=== PATIENT | female | born 1975 | race African-American/Black ===

== ENCOUNTER 2017-07-22 03:35 | Inpatient (IN) ==
[2017-07-22 04:46] LABS: Hematocrit 30.5 VOL% (35.7-47.0); Lymphocytes # 0.3 10*3/uL (1.4-4.0); Lymphocytes % 22.1 % (21.3-54.2); Mean Corpuscular HGB Conc 32.8 GM/DL (32-36); Mean Corpuscular Hemoglobin 23 PG (27-34); Mean Corpuscular Volume 71.1 FL (87-102); Monocytes # 0.1 10*3/uL (0.11-0.8); Monocytes % 5.3 % (1.7-12.7); Neutrophils # 0.8 10*3/uL (1.4-7.4); Neutrophils % 72.6 % (38.7-73.9); Red Blood Count 4.29 MC/CUMM (3.8-5.5); Red Cell Distribution Width 15.9 % (9.3-17.3)
[2017-07-22 04:48] LABS: White Blood Count 1.1 T/CUMM (4-12)
[2017-07-22 04:49] LABS: Platelet Count 154 T/CUMM (130-400)
[2017-07-22 04:58] LABS: PT Patient Result 10.6 SECS; Partial Thromboplastin Time 37.5 SECS (0-40)
[2017-07-22 05:16] LABS: Acanthocytes Few; Anisocytosis 2+; Band Neutrophils 30 % (0-10); Giant Platelets Few; Hypochromasia 1+; Lymphocytes 32 % (20-55); Metamyelocytes 4 %; Microcytosis 2+; Ovalocytes 1+; Platelet Estimate Decreased; Segmented Neutrophils 26 % (50-85); Total Cells Counted 100
[2017-07-22 05:28] LABS: Apearance,Urine Slightly Hazy (Clear); Bilirubin,Urine Negative (Negative); Blood, Urine Moderate mg/dL (Negative); Glucose,Urine (UA) Negative (Negative); Ketones,Urine Negative (Negative); Nitrite,Urine Negative (Negative); Protein,Urine 30 MG/DL; RBC,Urine 35 /HPF (0-4); Squamous Epithelial Cell,Urine Occasional /HPF (0-10); Urine Color Yellow (Yellow); Urine Specific Gravity 1.039 (1.001-1.035); Urine Urobilinogen < 2.0 EU/DL (0.2-1.0); WBC,Urine 4 /HPF (0-6)
--- NOTE | 2017-07-22 05:31 | Emergency Department Note ---
Salima Vazquez Emily, am scribing for, and in the presence of, Crow Tijerina MD 04:16. Breezy Vazquez Hans, MD, personally performed the services described in this documentation, ascribed by Anju Borrego in my presence, and it is both accurate and complete 531 . Arrival - Arrival Chief Complaint: Fever ED Nursing Triage Note: Pt arrives for further eval of Leukopenia. Pt was seen initially at [facility] for fever and headache and was found to have abnormal labs. Pt states symptoms started 3-4 days ago with fever and generalized body aches. Mode of Arrival: Stretcher Limitations: No Limitations Source: Patient - History of Present Illness HPI Narrative: Pt is a 41 y/o female who was transferred from [facility] in [place], [place], to ED with further evaluation of Leukopenia. Pt was seen initially at [facility] for fever and headache and was found to have abnormal labs. Pt states symptoms started 3-4 days ago with fever and generalized body aches, but denies dysuria, diarrhea or N/V. Pt states other facility did not do a head CT. She reports having nml PO intake and ROSE has eased up some. PMHx of ADD, HTN. Pt notes taking lasix as needed, but denies taking a new medication recently. Onset (ago): day(s) Consistency: constant Severity: mild Severity scale (1-10): 3 Quality: aching Date of Last Menstrual Period: Present Allergies/Adverse Reactions: Allergies Allergy/AdvReac Type Severity Reaction Status Date / Time Sulfa (Sulfonamide Allergy RASH Verified 07/22/17 03:46 Antibiotics) sulfamethoxazole Allergy RASH Verified 07/22/17 03:46 [From Bactrim] trimethoprim [From Bactrim] Allergy RASH Verified 07/22/17 03:46 Review of System - Review of System 12 point system: reviewed and no additional remarkable complaints except as stated - Review of System Constitutional: Present: fever (high), weakness (body aches) Respiratory: Absent: respiratory distress Cardiovascular: Absent: chest pain Gastrointestinal: Absent: abdominal pain, vomiting, diarrhea Genitourinary female: Absent: dysuria Musculoskeletal: Absent: arm pain, back pain, neck pain Skin: Absent: rash Neurological: Present: headache. Absent: numbness, paresthesias, abnormal gait Psychiatric: Absent: anxiety Medical,Surgical,& Family Hx - Medical History Cardio: History of: Hypertension - Surgical History Reproductive Surgeries: Surgical HX of;: Tubal Ligation - Family History Family History: noncontributory - Social History Smoking Status: Never smoker Frequency of Alcohol Use: Occasionally Type of Drug Use: None Marital Status: Single Lives With:: Alone Functional capacity: independent ambulation Exam Vital Signs: Vital Signs Temperature 98.6 F 07/22/17 03:35 Pulse Rate 87 07/22/17 03:35 Respiratory Rate 18 07/22/17 03:35 Blood Pressure 108/75 07/22/17 03:35 O2 Sat by Pulse Oximetry 100 07/22/17 03:35 - General General appearance: alert, in no apparent distress - Head Head exam: Present: atraumatic, normocephalic - Eye Eye exam: Present: PERRL, EOMI - ENT ENT exam: Present: mucous membranes moist. Absent: mucous membranes dry - Neck Neck exam: Present: full ROM - Chest Chest inspection: Present: symmetric chest wall rise - Respiratory Respiratory exam: Present: normal lung sounds bilaterally. Absent: respiratory distress - Cardiovascular Cardiovascular exam: Present: regular rate, normal rhythm, normal heart sounds - Extremities Exam Extremities exam: Present: full ROM. Absent: pedal edema - Neurological Exam Neurological exam: Present: alert, oriented X3, CN II-XII intact. Absent: motor sensory deficit - Psychiatric Psychiatric exam: Present: normal affect, normal mood - Skin Skin exam: Present: warm, dry Course Course Narrative: This patient presented with leukopenia and fevers with headache and malaise. She was treated at outside hospital with antibiotics and blood cultures were repeated here as well as head CT. Workup here was negative and I discussed her pancytopenia with hospitalist on-call who agreed to come and see her for admission for treatment with antibiotics and monitoring her blood counts. Results - Labs CBC & BMP: 07/22/17 03:46 Lab Results: I have reviewed the patients labs Labs: Laboratory Tests 07/22/17 07/22/17 03:46 03:46 WBC 1.1 L RBC 4.29 Hgb 10.0 L Hct 30.5 L MCV 71.1 L MCH 23 L Plt Count 154 Neut # (Auto) 0.8 L Lymph # (Auto) 0.3 L [place] # (Auto) 0.1 L Total Counted 100 Segmented Neutrophils 26 L Band Neutrophils 30 H Nucleated RBCs # 0.00 Platelet Estimate Decreased Giant Platelets Few Hypochromasia 1+ Anisocytosis 2+ Microcytosis 2+ Ovalocytes 1+ Acanthocytes (Spur) Few INR 1.0 PT Patient/Control Mix 10.6 Circ Anticoag PTT 37.5 Disposition Clinical Impression: Fever of unknown origin Case discussed with: patient Disposition: Still a Patient Condition: Stable Time of Disposition: 05:31
[2017-07-22] MEDS ORDERED: ONDANSETRON 4 MG/2 ML VIAL IV PRN (05:34)
[2017-07-22] MEDS ORDERED: ZALEPLON 5 MG CAPSULE PO PRN (05:34)
[2017-07-22] MEDS ORDERED: ACETAMINOPHEN 325 MG TABLET PO PRN (05:34)
--- NOTE | 2017-07-22 05:51 | Hospitalist History & Physical ---
Assessment and Plan (1) Leukopenia Status: Acute Current Visit: Yes (2) History of ADHD Status: Acute Current Visit: Yes (3) History of chronic back pain Status: Acute Current Visit: Yes (4) Fever of unknown origin Status: Acute Current Visit: Yes (5) Anemia Status: Acute Assessment and plan: Patient will be admitted to our service. We will put her on Zosyn and continue that while in the hospital. Suspect her fever is urinary in source. Blood cultures have been drawn. Will consult Heme onc for the leukopenia. Unsure of the cause at this point. It could be related to the medications that she had been given. Patient needs to be on reverse isolation precautions Current Visit: Yes History of Present Illness Chief complaint: Transfer from outside facility History of present illness: Ms. Tapia is a 41 year old female with past medical history significant for hypertension, chronic back pain, ADHD and arthritis who was in her normal state of health until the past 3-4 days. Patient has been developing fever and chills. She denies any cold symptoms no cough no shortness of breath no sinus drainage. She has been feeling, weak. She has had a recent S episode of a extended menstrual cycle. She had a recent prescription for Diflucan for yeast infection. She took 7 days of the medication. She went to the ER because of fever last night was found to be leukopenic. She was given a dose of Zosyn. She was sent to our hospital for further evaluation I was consulted to admit her once it was verified that she was leukopenia. Allergies Allergy/AdvReac Type Severity Reaction Status Date / Time Sulfa (Sulfonamide Allergy RASH Verified 07/22/17 03:46 Antibiotics) sulfamethoxazole Allergy RASH Verified 07/22/17 03:46 [From Bactrim] trimethoprim [From Bactrim] Allergy RASH Verified 07/22/17 03:46 Medical,Surgical,& Family Hx - Medical History Cardio: History of: Hypertension - Surgical History Reproductive Surgeries: Surgical HX of;: Tubal Ligation - Family History Family History: Reports;: Family Heart Disease, Family Hypertension - Social History Smoking Status: Never smoker Frequency of Alcohol Use: Occasionally Type of Drug Use: None 12 point system: reviewed and no additional remarkable complaints except as stated Exam - Constitutional Vitals: Period Temp Pulse Resp BP Sys/Padron Pulse Ox Last 24 Hr 98.6 F-98.6 F 87-87 18-18 105-108/75-75 100 General appearance: normal weight, no acute distress - Head Head exam: Present: normal inspection - Eye Eye exam: Present: EOMI Pupils: Present: VAN - ENT ENT exam: Present: normal exam, other (Patient has a high palate) - Neck Neck exam: Present: normal inspection - Respiratory Respiratory exam: Present: clear to auscultation bilaterally - Cardiovascular Cardiovascular exam: Present: regular rate and rhythm - GI/Abdominal GI/Abdominal exam: Present: normal bowel sounds - Extremities Exam Extremities exam: Present: normal inspection - Back Exam Back exam: Present: normal inspection - Neurological Exam Neurological exam: Present: alert - Psychiatric Psychiatric exam: Present: normal affect, normal mood - Skin Skin exam: Present: normal color Results - Labs CBC & BMP: 07/22/17 03:46 Labs: Labs from outside facility displayed a leukoesterase positive and a urinalysis sodium 133 potassium 4.1 chloride 94 bicarb 30 creatinine 0.7 BUN 12 calcium 8.3 glucose 109 rapid flu a and B are negative rapid group A strep negative
--- NOTE | 2017-07-22 06:54 | CT Report ---
History: Headache Date: 07/22/2017 Study: CT head without Comparison exam: No previous head CT available The study was also reviewed by [facility]. Transaxial CT sections were obtained through the brain without contrast. The ventricles are midline in position without evidence of hydrocephalus. There is no mass or area of parenchymal hemorrhage. There is mild basal ganglia calcification in the right globus pallidus area, within normal limits of variation.. There is no gross CT evidence of acute cortical stroke. There is no extra-axial hematoma. The sinuses are generally clear. There is no obvious skull fracture. Impression: No acute intracranial process This CT exam was performed using one or more the following dose reduction techniques: Automated exposure control, adjustment of the MA and/or KV according to patient size, or use of iterative reconstruction technique. PROCEDURE INTERPRETED AT [facility] Final Report Signed by: Dr. Zully Castro
[2017-07-22] MEDS ORDERED: PIPERACILLIN/TAZOBACTAM 3,375 MG in SODIUM CHLORIDE 0.9% 100 ML IV SCH (07:30)
[2017-07-22] MEDS: SODIUM CHLORIDE 0.9% 1,000 ML IV SCH ×4 (07:51→19:46)
[2017-07-22] MEDS: PANTOPRAZOLE 40 MG TABLET PO SCH (10:21)
[2017-07-22 10:39] LABS: HIV Antigen/Antibody Result Nonreactive (Nonreactive)
[2017-07-22 12:33] LABS: % Iron Saturation 6.1 % (18-50); Ferritin 528.7 ng/ml (8-252); Thyroid Stimulating Hormone 1.09 uIU/ml (0.358-3.74)
[2017-07-22 12:37] LABS: Vitamin B12 1428 PG/ML (211-911)
--- NOTE | 2017-07-22 15:57 | Infectious Disease Consult ---
Assessment and Plan (1) Leukopenia Status: Acute Assessment and plan: Patient actually has pancytopenia and labs at outside hospital yesterday. Platelet count has improved significantly. She has stable anemia. I am not sure the cause she did have fever before coming in but has not fever since being in the hospital. Suspect viral illness; was not a possibility as we are still in that season. Alternatively could be a tickborne illness. Recommendations: 1. Check West Nile serology, also check rickettsial serologies 2. Discontinue Zosyn 3. Doxycycline 100 mg twice a day 4. Monitor temperature curve Thank you very much for the consult. Will follow. Discussed with patient's at bedside Current Visit: Yes (2) Anemia Status: Acute Current Visit: Yes History of Present Illness Chief complaint: Neutropenia History of present illness: Ms. Tapia is a 41 year old female who was well until about 4-5 days ago when she started having malaise, fever chills, muscle aches and flushing of the face. She got progressively worse and so decided to seek medical attention. When she had labs done she was found to be neutropenic and so she was referred to our institution for further evaluation. Patient says about 1-2 years ago she had a similar experience with neutropenia and she was referred to an infectious disease physicians and at [facility]. No cause was found and the patient recovered without any difficulties after that time. In terms of current illness he reports no ill contacts, she has no pets. She does not do any gardening and has not had any known tick exposures. They did travel to [place] a few weeks ago just to visit family. Patient's other concern is that she has had a prolonged menstrual cycle for the past month. She recently took fluconazole for yeast infection. Home Medications Medication Instructions Recorded Confirmed Type Dextroamphetamine/Amphetamine 10 mg PO 1500 07/22/17 07/22/17 History [Adderall 10 mg Tablet] Dextroamphetamine/Amphetamine 30 mg PO DAILY 07/22/17 07/22/17 History [Adderall 30 mg Tablet] Hydrocodone/Acetaminophen 1 each PO TID 07/22/17 07/22/17 History [Hydrocodon-Acetaminophn 10-325] Lisinopril 10 mg PO DAILY 07/22/17 07/22/17 History Methocarbamol Tab [Robaxin Tab] 750 mg PO BID PRN 07/22/17 07/22/17 History Allergies Allergy/AdvReac Type Severity Reaction Status Date / Time Sulfa (Sulfonamide Allergy RASH Verified 07/22/17 03:46 Antibiotics) sulfamethoxazole Allergy RASH Verified 07/22/17 03:46 [From Bactrim] trimethoprim [From Bactrim] Allergy RASH Verified 07/22/17 03:46 12 point system: reviewed and no additional remarkable complaints except as stated (Per HPI) Medical,Surgical,& Family Hx - Medical History Cardio: History of: Hypertension Musculoskeletal: History of: Musculoskeletal Problems Other: History of: Anaphylaxis (sulfa drug) - Surgical History Reproductive Surgeries: Surgical HX of;: Tubal Ligation - Family History Family History: Reports;: Family Cancer (grandmother), Family Diabetes ( grandparents), Family Heart Disease (mother), Family Hypertension (mother) Denies;: Family Anesthesia Reaction, Family Psychiatric Problems, Family Stroke - Social History Smoking Status: Never smoker Frequency of Alcohol Use: Occasionally Type of Drug Use: None Infectious Disease Exam H&P - Constitutional Vitals: Vital Signs Temp Pulse Resp BP Pulse Ox 99.8 F H 106 H 18 137/78 96 07/22/17 12:00 07/22/17 12:00 07/22/17 12:00 07/22/17 12:00 07/22/17 12:00 Intake and Output 07/21/17 07/22/17 07/22/17 23:59 07:59 15:59 Intake Total 640 / 640 Balance 640 / 640 Intake: Oral 640 / 640 Other: Voiding Method Toilet # Voids 2 # Bowel Movements 1 Weight 98.997 kg Patient Weight 07/22/17 23:59 Weight 98.997 kg Exam: General: Patient slightly malaised appearing, flushed cheeks HEENT: Mucous membranes pink and moist, anicteric acyanotic, VAN, no oropharyngeal exudates Neck: Supple, no thyroid gland enlargement Respiratory system: Breath sounds vesicular, no crepitations or wheezes Cardiovascular: Normal S1 and S2, no murmurs appreciated Abdomen: Normal bowel sounds, soft nontender throughout, no organomegaly or mass Genitourinary: No suprapubic pain or bladder distention Extremities: no edema Skin: No rash Reports - Labs CBC & BMP: 07/22/17 03:46 Labs: Laboratory Results - last 24 hr 07/22/17 07/22/17 07/22/17 03:46 03:46 04:51 WBC 1.1 L RBC 4.29 Hgb 10.0 L Hct 30.5 L MCV 71.1 L MCH 23 L MCHC 32.8 RDW 15.9 Plt Count 154 Neut % (Auto) 72.6 Lymph % (Auto) 22.1 [place] % (Auto) 5.3 Eos % (Auto) 0.0 Baso % (Auto) 0.0 Neut # (Auto) 0.8 L Lymph # (Auto) 0.3 L [place] # (Auto) 0.1 L Eos # (Auto) 0.0 Baso # (Auto) 0.0 Total Counted 100 Immature Gran % 0.0 Nucleated RBC % 0.0 Immature Gran # 0.00 Segmented Neutrophils 26 L Band Neutrophils 30 H Lymphocytes 32 Monocytes 8 Metamyelocytes 4 Nucleated RBCs # 0.00 Platelet Estimate Decreased Giant Platelets Few Immature Plt Fraction 0.0 Hypochromasia 1+ Anisocytosis 2+ Microcytosis 2+ Ovalocytes 1+ Acanthocytes (Spur) Few Absolute Retic Percent Retic Retic Hgb Equivalent Haptoglobin INR 1.0 PT Patient/Control Mix 10.6 Circ Anticoag PTT 37.5 Iron TIBC % Saturation Ferritin Vitamin B12 Folate TSH 3rd Generation Urine Color Yellow Urine Appearance Slightly hazy Urine pH 5.0 Ur Specific [place] 1.039 H Urine Protein 30 Urine Glucose (UA) Negative Urine Ketones Negative Urine Blood Moderate Urine Nitrate Negative Urine Bilirubin Negative Urine Urobilinogen < 2.0 H Urine Leukocytes Negative Urine RBC 35 Urine WBC 4 Ur Squamous Epith Cells Occasional Ur Culture Indicated? Not indicated HIV 1&2 Antigen & Ab 07/22/17 07/22/17 07/22/17 08:41 08:41 08:42 WBC RBC Hgb Hct MCV MCH MCHC RDW Plt Count Neut % (Auto) Lymph % (Auto) [place] % (Auto) Eos % (Auto) Baso % (Auto) Neut # (Auto) Lymph # (Auto) [place] # (Auto) Eos # (Auto) Baso # (Auto) Total Counted Immature Gran % Nucleated RBC % Immature Gran # Segmented Neutrophils Band Neutrophils Lymphocytes Monocytes Metamyelocytes Nucleated RBCs # Platelet Estimate Giant Platelets Immature Plt Fraction Hypochromasia Anisocytosis Microcytosis Ovalocytes Acanthocytes (Spur) Absolute Retic Percent Retic Retic Hgb Equivalent Haptoglobin 103.0 INR PT Patient/Control Mix Circ Anticoag PTT Iron 16 L TIBC 262 % Saturation 6.1 L Ferritin 528.7 H Vitamin B12 1428 H Folate 21.3 TSH 3rd Generation 1.090 Urine Color Urine Appearance Urine pH Ur Specific [place] Urine Protein Urine Glucose (UA) Urine Ketones Urine Blood Urine Nitrate Urine Bilirubin Urine Urobilinogen Urine Leukocytes Urine RBC Urine WBC Ur Squamous Epith Cells Ur Culture Indicated? HIV 1&2 Antigen & Ab 07/22/17 07/22/17 08:49 12:20 WBC RBC Hgb Hct MCV MCH MCHC RDW Plt Count Neut % (Auto) Lymph % (Auto) [place] % (Auto) Eos % (Auto) Baso % (Auto) Neut # (Auto) Lymph # (Auto) [place] # (Auto) Eos # (Auto) Baso # (Auto) Total Counted Immature Gran % Nucleated RBC % Immature Gran # Segmented Neutrophils Band Neutrophils Lymphocytes Monocytes Metamyelocytes Nucleated RBCs # Platelet Estimate Giant Platelets Immature Plt Fraction Hypochromasia Anisocytosis Microcytosis Ovalocytes Acanthocytes (Spur) Absolute Retic 0.0 Percent Retic 0.3 L Retic Hgb Equivalent 29.1 Haptoglobin INR PT Patient/Control Mix Circ Anticoag PTT Iron TIBC % Saturation Ferritin Vitamin B12 Folate TSH 3rd Generation Urine Color Urine Appearance Urine pH Ur Specific [place] Urine Protein Urine Glucose (UA) Urine Ketones Urine Blood Urine Nitrate Urine Bilirubin Urine Urobilinogen Urine Leukocytes Urine RBC Urine WBC Ur Squamous Epith Cells Ur Culture Indicated? HIV 1&2 Antigen & Ab Nonreactive - Impressions Records from outside hospital reviewed and the patient actually had thrombocytopenia there this was yesterday, platelet count of 113, hemoglobin was about 10, white blood cell count 1.01. Flu and strep screens were negative.
--- NOTE | 2017-07-22 16:05 | Hospitalist Progress Note ---
Assessment and Plan (1) Fever of unknown origin Status: Acute Assessment and plan: Dr Mae consulted, doxycycline ordered, cmp, [place] and rickettsial Current Visit: Yes (2) Leukopenia Status: Acute Assessment and plan: could be due to diflucan, infection, asked Hematology and ID for an opinion Current Visit: Yes (3) Anemia Status: Acute Assessment and plan: Ferritin level is elevated during acute phase reactant. B12 and folate are normal. Haptoglobin 103. Current Visit: Yes Hospitalist: Subjective Interval history: Patient told Dr. Mae that she took a dose of Diflucan for a vaginal yeast infection. Diflucan can cause leukopenia. But it does not explain her fevers and. She says she has been having fevers for several months off and on. She has had a workup pretty extensively at [facility] and they never found a cause. She denies any recent tick bites. She reports being exposed to fleas. Her says [place] out in [place] and is exposed to ticks and could have easily brought one home to her but she never remembers removing a check. She has no active wounds or rashes at this time she has healing little bite wounds on her legs on bilateral lower extremities. I will ask Dr. Mae and Dr. Keen to see her as I am concerned about her unresolving fever. Patient is currently in reverse isolation Exam - Constitutional Vitals: Period Temp Pulse Resp BP Sys/Padron Pulse Ox Last 24 Hr 98.4 F-99.8 F 72-106 16-18 105-137/66-78 96-100 Exam: Heart Rate-[RRR] Lungs-[CTAB] GI-[+bs soft, NT] Ext-[no edema] Neuro [Motor 5/5], [alert and oriented times 3] psych [normal mood and affect] General [no acute distress] Results - Labs CBC & BMP: 07/22/17 03:46 Lab Results: I have reviewed the past 24 hour labs Labs: Blood cultures are pending, B12 1428, folate 21, TSH 1, ferritin 528, iron 16, HIV negative, tested her for influenza which was negative, lactic acid is 1.6 - Diagnostic Findings Procedure: CT: report reviewed by me (Head CT nothing acute)
[2017-07-22 17:01] LABS: Alanine Aminotransferase 48 U/L (13-56); Albumin 2.9 G/DL (3.4-5.0); Alkaline Phosphatase 80 U/L (45-117); Aspartate Amino Transferase 76 U/L (0-37); Bilirubin,Total < 0.39 MG/DL (0.2-1.0); Blood Urea Nitrogen 15 MG/DL (7-18); Calcium 8.5 MG/DL (8.5-10.1); Glucose 101 MG/DL (74-106); Osmolality,Calculated 268.2 MOS/KG (273-304); Potassium 4.2 MMOL/L (3.5-5.1); Sodium 134 MMOL/L (136-145); Total Protein 6.6 G/DL (6.4-8.3)
[2017-07-22] MEDS: DOXYCYCLINE HYCLATE INJ 100 MG in SODIUM CHLORIDE 0.9% 100 ML IV SCH (17:10)
[2017-07-23] MEDS: SODIUM CHLORIDE 0.9% 1,000 ML IV SCH ×3 (04:21→23:06)
[2017-07-23] MEDS: DOXYCYCLINE HYCLATE INJ 100 MG in SODIUM CHLORIDE 0.9% 100 ML IV SCH ×3 (05:37→21:30)
[2017-07-23 06:10] LABS: Hematocrit 26.7 VOL% (35.7-47.0); Immature Granulocytes % 1.1 %; Immature Granulocytes Absolute 0.01 #; Lymphocytes # 0.4 10*3/uL (1.4-4.0); Mean Corpuscular HGB Conc 33.7 GM/DL (32-36); Mean Corpuscular Hemoglobin 24 PG (27-34); Mean Corpuscular Volume 70.4 FL (87-102); Monocytes % 4.4 % (1.7-12.7); Neutrophils # 0.5 10*3/uL (1.4-7.4); Neutrophils % 54.5 % (38.7-73.9); Platelet Count 78 T/CUMM (130-400); Red Blood Count 3.79 MC/CUMM (3.8-5.5); Red Cell Distribution Width 16.3 % (9.3-17.3)
[2017-07-23 06:18] LABS: White Blood Count 0.9 T/CUMM (4-12)
[2017-07-23 06:46] LABS: Albumin 2.6 G/DL (3.4-5.0); Calcium 7.8 MG/DL (8.5-10.1); Osmolality,Calculated 270.8 MOS/KG (273-304); Potassium 3.8 MMOL/L (3.5-5.1); Total Protein 5.7 G/DL (6.4-8.3)
[2017-07-23 06:55] LABS: Band Neutrophils 10 % (0-10); Lymphocytes 40 % (20-55); Segmented Neutrophils 50 % (50-85); Total Cells Counted 100
[2017-07-23 06:56] LABS: Acanthocytes 1+; Hypochromasia 2+; Microcytosis 1+
--- NOTE | 2017-07-23 07:59 | Hematology Consult ---
Assessment and Plan - Time spent with patient Time spent with patient: Greater than 30 minutes (1) Pancytopenia Status: Acute Assessment and plan: I am unsure the etiology of her pancytopenia at this time. This may very well be infectious in etiology. Her serum DARWIN is pending to evaluate for underlying rheumatologic disorders. Her lab work that I ordered yesterday confirms iron deficiency which is not surprising given her heavy menses. There is no evidence of hemolysis. Given that there is no obvious blasts or leukemic cells in her peripheral blood, I will hold off on ordering a bone marrow biopsy at this time. I will go ahead and place her on iron supplementation since she is obviously iron deficient. I think having ALLERGIST evaluate her for her heavy menses is appropriate. I will also check a fibrinogen level and a serum protein electro paresis. If her blood counts show no improvement tomorrow, I think it would be prudent to have a bone marrow biopsy done. Current Visit: Yes (2) Fever of unknown origin Status: Acute Current Visit: Yes History of Present Illness - Consult Narrative History of present illness: Ms. Tapia is a 41 year old female who was transferred here from outside hospital due to fever and pancytopenia. Since being here she has been afebrile. She remains pancytopenic. She states she has had an episode like this previously and was evaluated at [facility]. She states she felt similar to the way she feels now but at that time she had a more significant rash on her lower extremities and did not feel as fatigued as she had with this episode. Her symptoms began 7 days ago. She states they have improved since then. She is currently on doxycycline. Her peripheral smear shows microcytic red cells but no concerning blasts or evidence of hemolysis. Lab work confirms iron deficiency. B12 and folate levels are normal. She states she is taking iron supplementation off and on now for the last 15 years. She is currently having heavy menses and states it has been this way for the last 3-4 weeks. She has not seen her ALLERGIST in [place] about this issue yet. Blood cultures are no growth at this time. She does not appear to be overtly toxic. Infectious disease is seeing her while she is here. CC: Melanie Cortez MD - Home Medications and Allergies Home Medications: Home Medications Medication Instructions Recorded Confirmed Type Dextroamphetamine/Amphetamine 10 mg PO 1500 07/22/17 07/22/17 History [Adderall 10 mg Tablet] Dextroamphetamine/Amphetamine 30 mg PO DAILY 07/22/17 07/22/17 History [Adderall 30 mg Tablet] Hydrocodone/Acetaminophen 1 each PO TID 07/22/17 07/22/17 History [Hydrocodon-Acetaminophn 10-325] Lisinopril 10 mg PO DAILY 07/22/17 07/22/17 History Methocarbamol Tab [Robaxin Tab] 750 mg PO BID PRN 07/22/17 07/22/17 History Allergies/Adverse Reactions: Allergies Allergy/AdvReac Type Severity Reaction Status Date / Time Sulfa (Sulfonamide Allergy RASH Verified 07/22/17 03:46 Antibiotics) sulfamethoxazole Allergy RASH Verified 07/22/17 03:46 [From Bactrim] trimethoprim [From Bactrim] Allergy RASH Verified 07/22/17 03:46 Medical,Surgical,& Family Hx - Medical History Cardio: History of: Hypertension Musculoskeletal: History of: Musculoskeletal Problems Other: History of: Anaphylaxis (sulfa drug) - Surgical History Reproductive Surgeries: Surgical HX of;: Tubal Ligation - Family History Family History: Reports;: Family Cancer (grandmother), Family Diabetes ( grandparents), Family Heart Disease (mother), Family Hypertension (mother) Denies;: Family Anesthesia Reaction, Family Psychiatric Problems, Family Stroke - Social History Smoking Status: Never smoker Frequency of Alcohol Use: Occasionally Type of Drug Use: None 12 point system: reviewed and no additional remarkable complaints except as stated - Constitutional Constitutional: Present: fatigue, malaise, weakness. Absent: night sweats, weight loss - EENT Eye: Absent: loss of vision Nose, mouth and throat: Absent: dizziness, neck pain - Cardiovascular Cardiovascular ROS IM: Absent: chest pain, edema - Respiratory Respiratory: Absent: cough - Gastrointestinal Gastrointestinal: Absent: abdominal pain, hematochezia, nausea - Genitourinary Genitourinary ROS female: Absent: hematuria - Neurological Neurological ROS: Absent: syncope - Hematologic/Lymphatic Hematologic/Lymphatic: Absent: easy bleeding, easy bruising, lymphadenopathy Exam - Constitutional Vitals: Period Temp Pulse Resp BP Sys/Padron Pulse Ox Last 24 Hr 97.5 F-99.8 F 83-106 18-20 116-148/69-81 95-98 General appearance: normal weight, no acute distress - Head Head Exam: Present: normocephalic, atraumatic - Eye Eye Exam: Present: EOMI Pupils: Present: PERRL - ENT ENT exam: Present: normal exam, normal oropharynx - Neck Neck exam: Absent: lymphadenopathy, thyromegaly - Respiratory Respiratory exam: Present: CTAB. Absent: wheezes - Cardiovascular Cardiovascular exam: Present: RRR. Absent: JVD, systolic murmur - GI/Abdominal GI/Abdominal exam: Present: soft. Absent: ascites, distended, firm, mass - Neurological Exam Neurological exam: Present: alert, oriented X3 - Psychiatric Psychiatric exam: Present: normal affect, normal mood - Skin Skin exam: Present: warm, dry Results - Labs CBC & BMP: 07/23/17 05:36 07/23/17 05:36 Lab Results: I have reviewed the past 24 hour labs
[2017-07-23] MEDS: FERROUS SULFATE 325 MG TABLET PO SCH ×3 (08:25→21:31)
[2017-07-23] MEDS: PANTOPRAZOLE 40 MG TABLET PO SCH (08:25)
--- NOTE | 2017-07-23 11:23 | Infectious Disease Progress ---
Assessment and Plan (1) Leukopenia Status: Acute Current Visit: Yes (2) Anemia Status: Acute Current Visit: Yes (3) Pancytopenia Status: Acute Assessment and plan: Not sure yet if this is an infectious problem. She does not have any URI symptoms or any other obvious features of infection, no rash. Patient has been completely afebrile since admission. Recommendations: Continue with empiric doxycycline. Follow-up on serologies for rickettsiae and West Nile virus. Discussed with sister. Multiple questions answered. Current Visit: Yes Infectious Disease - PN: Subj Interval history: The patient has been afebrile since admission however she still feels malaised. She says she had some sweats earlier this morning and felt as if she had a fever. She has no sore throat no cough no shortness of breath. No nausea vomiting. No rashes. Infectious Disease Exam (PN) - Constitutional Vitals: Temp Pulse Resp BP Pulse Ox 97.6 F 94 H 18 129/80 96 07/23/17 08:00 07/23/17 08:00 07/23/17 08:00 07/23/17 08:00 07/23/17 08:00 General appearance: normal weight, no acute distress Exam: General appearance: She looks a little malaised but nontoxic, face still seems a bit flushed but less so than yesterday - Eye Eye exam: Present: EOMI. no icterus Pupils: Present: VAN - ENT ENT exam: no oral exudates - Respiratory Respiratory exam: vesicular BS, no crepitations or wheezes - Cardiovascular Cardiovascular exam: regular rate and rhythm, no murmurs - GI/Abdominal GI/Abdominal exam: normal bowel sounds, soft, non-tender, no organomegaly or mass - Extremities Exam Extremities exam: no edema - Skin Skin exam: no rash Results - Labs CBC & BMP: 07/23/17 05:36 07/23/17 05:36 Lab Results: I have reviewed the past 24 hour labs
--- NOTE | 2017-07-23 11:52 | Hospitalist Progress Note ---
Assessment and Plan (1) Anemia Status: Acute Assessment and plan: Iron deficient Hematology assisting Iron replacement Also with heavy menses [employer] Tender has been consulted Current Visit: Yes (2) Pancytopenia Status: Acute Assessment and plan: Hematology and ID assisting On doxycycline, ricettsial and west nile ordered DARWIN is negative Does have tooth pain, attempted to consult dental Current Visit: Yes Hospitalist: Subjective Interval history: No acute events overnight. Patient seen walking around her room. She reports tooth pain for approximately one month. She denies fevers at home. Exam - Constitutional Vitals: Period Temp Pulse Resp BP Sys/Padron Pulse Ox Last 24 Hr 97.5 F-99.8 F 83-106 18-20 116-148/69-81 95-98 General appearance: normal weight - Head Head exam: Present: normocephalic, atraumatic - Eye Eye exam: Present: EOMI Pupils: Present: VAN - ENT ENT exam: Present: normal exam - Neck Neck exam: Present: normal inspection - Respiratory Respiratory exam: Present: clear to auscultation bilaterally. Absent: rhonchi, wheezes - Cardiovascular Cardiovascular exam: Present: regular rate and rhythm - GI/Abdominal GI/Abdominal exam: Present: normal bowel sounds, soft. Absent: tenderness, rebound - Extremities Exam Extremities exam: Present: normal inspection - Back Exam Back exam: Present: normal inspection - Neurological Exam Neurological exam: Present: alert, oriented X3 - Psychiatric Psychiatric exam: Present: normal affect, normal mood - Skin Skin exam: Present: warm, intact Results - Labs CBC & BMP: 07/23/17 05:36 07/23/17 05:36
[2017-07-23] MEDS: LISINOPRIL 10 MG TABLET PO SCH (15:13)
--- NOTE | 2017-07-23 17:19 | Consultation ---
Assessment and Plan (1) Menorrhagia Problem details: Only has had menorrhagia with the onset of current pancytopenia symptoms, no prior history of menorrhagia Status: Acute Assessment and plan: Suspected this is associated with her thrombocytopenia and is not indicative of primary gynecological disorder. However ordered vaginal probe ultrasound as a precaution. Current Visit: Yes History of Present Illness - Data of Consult Patient: new to practice Consult date: 07/23/17 - Consult Narrative Reason for consult: Excessive vaginal bleeding for the last 2 weeks History of present illness: Ms. Tapia is a 41 year old female Who is currently under evaluation for an unexplained decrease and white blood cells and platelets. Patient states that she had a similar episode several years ago which resolved spontaneously before she could be seen in consultation at [facility]. There is no diagnosis associated with that episode apparently. Her bleeding has been regular and not heavy other than some mild clotting for a long time until his current episode of bleeding. She is noting some clots menstrual flow and denies other bleeding diathesis brushing her teeth are otherwise. She admits to a cryocautery about 15 years ago for atypical cells. She states her Pap smears have not been abnormal since but that it is been at least 2-3 years since she has had one. CC: Melanie Cortez MD - Home Medications and Allergies Home Medications: Home Medications Medication Instructions Recorded Confirmed Type Dextroamphetamine/Amphetamine 10 mg PO 1500 07/22/17 07/22/17 History [Adderall 10 mg Tablet] Dextroamphetamine/Amphetamine 30 mg PO DAILY 07/22/17 07/22/17 History [Adderall 30 mg Tablet] Hydrocodone/Acetaminophen 1 each PO TID 07/22/17 07/22/17 History [Hydrocodon-Acetaminophn 10-325] Lisinopril 10 mg PO DAILY 07/22/17 07/22/17 History Methocarbamol Tab [Robaxin Tab] 750 mg PO BID PRN 07/22/17 07/22/17 History Allergies/Adverse Reactions: Allergies Allergy/AdvReac Type Severity Reaction Status Date / Time Sulfa (Sulfonamide Allergy RASH Verified 07/22/17 03:46 Antibiotics) sulfamethoxazole Allergy RASH Verified 07/22/17 03:46 [From Bactrim] trimethoprim [From Bactrim] Allergy RASH Verified 07/22/17 03:46 - Genitourinary Genitourinary: Present: abnormal vaginal bleeding, menorrhagia Medical,Surgical,& Family Hx - Medical History Cardio: History of: Hypertension Musculoskeletal: History of: Musculoskeletal Problems Other: History of: Anaphylaxis (sulfa drug) - Surgical History Reproductive Surgeries: Surgical HX of;: Tubal Ligation - Family History Family History: Reports;: Family Cancer (grandmother), Family Diabetes ( grandparents), Family Heart Disease (mother), Family Hypertension (mother) Denies;: Family Anesthesia Reaction, Family Psychiatric Problems, Family Stroke - Social History Smoking Status: Never smoker Frequency of Alcohol Use: Occasionally Type of Drug Use: None Exam - Constitutional Vitals: Period Temp Pulse Resp BP Sys/Padron Pulse Ox Last 24 Hr 97.5 F-99 F 81-99 18-20 129-155/60-97 95-100 General appearance: no acute distress Results - Labs CBC & BMP: 07/23/17 05:36 07/23/17 05:36 Exam [employer] - Constitutional Vitals: Vital Signs Temp Pulse Resp BP Pulse Ox 07/23/17 16:00 99 F 81 18 154/60 98 07/23/17 12:00 97.6 F 84 18 155/97 100 07/23/17 08:00 97.6 F 94 H 18 129/80 96 07/23/17 03:50 98.3 F 88 20 138/80 98 07/23/17 02:30 20 07/23/17 01:30 20 07/23/17 00:10 97.5 F L 99 H 20 134/81 95 07/22/17 20:00 98.2 F 94 H 18 148/77 98 - Gyencological / Post Surgical Gynocological Exam Extremities [employer]ER: Present: normal Abdomen obstetrics progress note: Present: soft. Absent: mass (Bimanual examination reveals a small amount of dark vaginal bleeding. The uterus does not feel especially enlarged and no adnexal masses are palpated.)
[2017-07-23] MEDS: DOXYCYCLINE HYCLATE 100 MG CAPSULE PO SCH (23:04)
[2017-07-24 06:26] LABS: Calcium 7.9 MG/DL (8.5-10.1); Magnesium 1.8 MG/DL (1.8-2.4); Osmolality,Calculated 273.5 MOS/KG (273-304); Potassium 4.2 MMOL/L (3.5-5.1)
[2017-07-24 06:46] LABS: Basophils % 0.4 % (0.0-0.8); Hematocrit 28.7 VOL% (35.7-47.0); Hemoglobin 9.5 GM/DL (12.0-16.0); Immature Granulocytes % 0.4 %; Immature Granulocytes Absolute 0.01 #; Lymphocytes # 0.8 10*3/uL (1.4-4.0); Lymphocytes % 33.2 % (21.3-54.2); Mean Corpuscular HGB Conc 33.1 GM/DL (32-36); Mean Corpuscular Hemoglobin 23 PG (27-34); Mean Corpuscular Volume 70.2 FL (87-102); Monocytes # 0.1 10*3/uL (0.11-0.8); Monocytes % 5.8 % (1.7-12.7); Neutrophils # 1.5 10*3/uL (1.4-7.4); Neutrophils % 60.2 % (38.7-73.9); Platelet Count 93 T/CUMM (130-400); Red Blood Count 4.09 MC/CUMM (3.8-5.5); Red Cell Distribution Width 16.5 % (9.3-17.3); White Blood Count 2.4 T/CUMM (4-12)
[2017-07-24 07:42] LABS: Albumin (SPE) 3.1 G/DL (3.2-5.3); Albumin (SPE) Rel % 54.6 %; Total Protein (Chem) 5.7 G/DL (6.4-8.3)
[2017-07-24 07:43] LABS: Alpha 1 (SPE) 0.2 G/DL (0.1-0.4); Alpha 1 (SPE) Rel % 3.7 %; Alpha 2 (SPE) 0.6 G/DL (0.4-1.0); Beta (SPE) 0.6 G/DL (0.5-1.1); Beta (SPE) Rel % 11.6 %; Gamma (SPE) 1.1 G/DL (0.7-1.7); Gamma (SPE) Rel % 20.1 %
[2017-07-24 07:47] LABS: Band Neutrophils 3 % (0-10); Burr Cells Slight; Elliptocytes Few; Giant Platelets Few; Hypochromasia 1+; Lymphocytes 27 % (20-55); Platelet Estimate Decreased; Segmented Neutrophils 60 % (50-85); Total Cells Counted 100
[2017-07-24] MEDS: SODIUM CHLORIDE 0.9% 1,000 ML IV SCH ×3 (07:47→20:50)
[2017-07-24 07:48] LABS: Microcytosis 1+
--- NOTE | 2017-07-24 08:14 | Hematology Progress Note ---
Assessment and Plan (1) Fever of unknown origin Status: Acute Current Visit: Yes (2) Pancytopenia Status: Acute Current Visit: Yes Hematology Subjective PN Interval history: Ms. Tapia CBC is improved today. She states she is feeling a little better each day. I think we can hold off on a bone marrow biopsy at this time. I do recommend she remains in the hospital for another 24 hours to be certain that her blood counts continue to improve. If they get back down tomorrow, we would probably go ahead and do a bone marrow biopsy. Once she is ready for discharge , she would likely need follow-up with hematology. She has [place] Medicaid only so have to be seen in [place]. The closest floor inspector would be in [place]. I will check back in on her in the morning. Exam - Constitutional Vitals: Period Temp Pulse Resp BP Sys/Padron Pulse Ox Last 24 Hr 97.6 F-99.4 F 81-84 18-20 149-155/60-97 98-100 General appearance: normal weight, no acute distress - Head Head Exam: Present: normocephalic, atraumatic - Eye Eye Exam: Present: EOMI Pupils: Present: PERRL - ENT ENT exam: Present: normal exam, normal oropharynx - Neck Neck exam: Absent: lymphadenopathy, thyromegaly - Respiratory Respiratory exam: Present: CTAB. Absent: wheezes - Cardiovascular Cardiovascular exam: Present: RRR. Absent: JVD, systolic murmur - GI/Abdominal GI/Abdominal exam: Present: soft. Absent: ascites, distended, mass - Neurological Exam Neurological exam: Present: alert, oriented X3 - Psychiatric Psychiatric exam: Present: normal affect, normal mood - Skin Skin exam: Present: warm, dry Results - Labs CBC & BMP: 07/24/17 06:36 07/24/17 04:30 Lab Results: I have reviewed the past 24 hour labs
--- NOTE | 2017-07-24 09:27 | Ultrasound Report ---
History: Menorrhagia. Anemia Date: 07/24/2017 Study: Pelvic ultrasound Comparison exam: No previous similar available Real-time ultrasound images are captured and archived. The anteverted and slightly retroflexed uterus measures 92 x 46 x 58 mm maximum dimensions. There is a rounded isoechoic mural solid mass compatible with leiomyoma measuring 33 x 36 x 32 mm in the left lateral aspect of the fundus. The endometrial echo measures 5 mm. There is some mild fluid in the endometrial cavity of the lower uterine segment in this patient who is actively bleeding vaginally. There is mild free fluid in the cul-de-sac posteriorly. The right ovary measures 23 x 11 x 13 mm; the left measures 20 x 10 x 18 mm. There is no ovarian mass. There is gross color Doppler flow to either ovary. There is no significant abnormality otherwise. Impression: 36 mm mural uterine leiomyoma Mild fluid in the endometrial cavity which may represent products of hemorrhage in this patient with reported active vaginal bleeding. No gross thickening of the endometrial echo. No definite uterine mass otherwise by this exam. Mild nonspecific free fluid in the pelvis which may be physiologic PROCEDURE INTERPRETED AT [facility] DEPARTMENT OF RADIOLOGY Final Report Signed by: Dr. Zully Castro
[2017-07-24] MEDS: PANTOPRAZOLE 40 MG TABLET PO SCH (09:53)
[2017-07-24] MEDS: DOXYCYCLINE HYCLATE 100 MG CAPSULE PO SCH ×2 (09:53→20:48)
[2017-07-24] MEDS: LISINOPRIL 10 MG TABLET PO SCH (09:54)
[2017-07-24] MEDS: FERROUS SULFATE 325 MG TABLET PO SCH ×3 (09:54→20:48)
--- NOTE | 2017-07-24 16:20 | Infectious Disease Progress ---
Assessment and Plan (1) Leukopenia Status: Acute Assessment and plan: Notably improved today. Still no clear reason. No evidence of infection. Recommendations: Can complete a seven-day course of doxycycline. Serologies pending. Current Visit: Yes (2) Anemia Status: Acute Current Visit: Yes (3) Pancytopenia Status: Deleted Assessment and plan: Somewhat improved today. Current Visit: Yes Infectious Disease - PN: Subj Interval history: The patient is feeling better today, less flushed in her face. She has not had any fever at all since admission. Infectious Disease Exam (PN) - Constitutional Vitals: Temp Pulse Resp BP Pulse Ox 98.4 F 71 20 142/82 98 07/24/17 11:49 07/24/17 11:49 07/24/17 12:56 07/24/17 11:49 07/24/17 11:49 General appearance: normal weight, no acute distress Exam: General appearance: Looks well today - Eye Eye exam: Present: EOMI. no icterus Pupils: Present: VAN - ENT ENT exam: no oral exudates - Respiratory Respiratory exam: vesicular BS, no crepitations or wheezes - Cardiovascular Cardiovascular exam: regular rate and rhythm, no murmurs - GI/Abdominal GI/Abdominal exam: normal bowel sounds, soft, non-tender, no organomegaly or mass - Extremities Exam Extremities exam: no edema - Skin Skin exam: no rash Results - Labs CBC & BMP: 07/24/17 06:36 07/24/17 04:30 Lab Results: I have reviewed the past 24 hour labs
--- NOTE | 2017-07-24 16:31 | Hospitalist Progress Note ---
Assessment and Plan (1) Anemia Status: Acute Assessment and plan: Iron deficient Hematology assisting Iron replacement Evaluated by nurse specialist for heavy menses Current Visit: Yes (2) Pancytopenia Status: Deleted Assessment and plan: Hematology and ID assisting On doxycycline, ricettsial and west nile ordered DARWIN is negative Feeling much better today, counts improving No clear reason for any of this Current Visit: Yes Hospitalist: Subjective Interval history: No acute events overnight. Patient feeling much better today. Afebrile Exam - Constitutional Vitals: Period Temp Pulse Resp BP Sys/Padron Pulse Ox Last 24 Hr 97.2 F-99.4 F 59-83 18-20 134-158/74-95 97-100 General appearance: normal weight - Head Head exam: Present: normocephalic, atraumatic - Eye Eye exam: Present: EOMI Pupils: Present: VAN - ENT ENT exam: Present: normal exam - Neck Neck exam: Present: normal inspection - Respiratory Respiratory exam: Present: clear to auscultation bilaterally. Absent: rhonchi, wheezes - Cardiovascular Cardiovascular exam: Present: regular rate and rhythm - GI/Abdominal GI/Abdominal exam: Present: normal bowel sounds, soft. Absent: tenderness, rebound - Extremities Exam Extremities exam: Present: normal inspection - Back Exam Back exam: Present: normal inspection - Neurological Exam Neurological exam: Present: alert, oriented X3 - Psychiatric Psychiatric exam: Present: normal affect, normal mood - Skin Skin exam: Present: warm, intact Results - Labs CBC & BMP: 07/24/17 06:36 07/24/17 04:30
[2017-07-24] MEDS ORDERED: diphenhydrAMINE CAP 25 MG CAPSULE PO ONE (18:00)
[2017-07-25] MEDS: SODIUM CHLORIDE 0.9% 1,000 ML IV SCH (06:33)
[2017-07-25 07:12] LABS: Immuno Free Light Chain Kappa 3.51 MG/DL (0.33-1.94); Immuno Free Light Chain Lambda 2.61 MG/DL (0.57-2.63); Immuno Free Light Chain Ratio 1.34 MG/DL (0.26-1.65)
[2017-07-25 07:41] LABS: Basophils % 0.5 % (0.0-0.8); Eosinophils % 0.9 % (0.00-10.9); Hematocrit 27.2 VOL% (35.7-47.0); Lymphocytes # 1.1 10*3/uL (1.4-4.0); Lymphocytes % 49.3 % (21.3-54.2); Mean Corpuscular HGB Conc 33.1 GM/DL (32-36); Mean Corpuscular Hemoglobin 24 PG (27-34); Mean Corpuscular Volume 71.4 FL (87-102); Monocytes # 0.2 10*3/uL (0.11-0.8); Monocytes % 8.8 % (1.7-12.7); Neutrophils # 0.9 10*3/uL (1.4-7.4); Neutrophils % 40.5 % (38.7-73.9); Platelet Count 111 T/CUMM (130-400); Red Blood Count 3.81 MC/CUMM (3.8-5.5); Red Cell Distribution Width 16.7 % (9.3-17.3); White Blood Count 2.2 T/CUMM (4-12)
[2017-07-25] MEDS: FERROUS SULFATE 325 MG TABLET PO SCH (08:06)
[2017-07-25] MEDS: DOXYCYCLINE HYCLATE 100 MG CAPSULE PO SCH (08:06)
[2017-07-25 08:07] LABS: Band Neutrophils 3 % (0-10); Hypochromasia 2+; Lymphocytes 52 % (20-55); Microcytosis 1+; Segmented Neutrophils 36 % (50-85); Total Cells Counted 100
[2017-07-25] MEDS: LISINOPRIL 10 MG TABLET PO SCH (08:07)
[2017-07-25] MEDS: PANTOPRAZOLE 40 MG TABLET PO SCH (08:07)
[2017-07-25 08:08] LABS: Ovalocytes Few; Target Cells Slight
[2017-07-25 08:09] LABS: Anisocytosis 1+; Platelet Estimate Decreased; Poikilocytosis 1+
--- NOTE | 2017-07-25 09:00 | Hematology Progress Note ---
Assessment and Plan (1) Fever of unknown origin Status: Acute Current Visit: Yes (2) Pancytopenia Status: Acute Current Visit: Yes Hematology Subjective PN Interval history: Ms. Tapia is feeling better today. She was sitting in her chair eating breakfast. She continues to have no fevers. Her her WBC and hemoglobin are stable from yesterday but her platelet count is increased further to over 100, 000. I do not think she needs a bone marrow biopsy at this time and hopefully her blood counts will continue to recover over the next few days. Hopefully this was all some strange viral illness that will continue to improve each day. She does need very close follow-up when she is discharged. She states her primary doctor is Dr. Jasmin You in [place], [place]. She will need very close follow-up there sometime next week for a CBC check to make sure this is improving. I think it would also be hobson to go ahead and place a consult to the cancer center [facility] for hematology follow-up in case her blood counts do not recover much more. She would need to have a bone marrow biopsy done if that is the case. Unfortunately, given that she has [place] Medicaid, she is not covered to be seen as an outpatient here in [place]. I think from my standpoint she can be discharged home as long as she has close follow- up arranged. Exam - Constitutional Vitals: Period Temp Pulse Resp BP Sys/Padron Pulse Ox Last 24 Hr 97 F-98.4 F 59-94 18-20 129-153/65-82 93-100 General appearance: normal weight, no acute distress - Head Head Exam: Present: normocephalic, atraumatic - Eye Eye Exam: Present: EOMI Pupils: Present: PERRL - ENT ENT exam: Present: normal exam, normal oropharynx - Neck Neck exam: Absent: lymphadenopathy, thyromegaly - Respiratory Respiratory exam: Present: CTAB. Absent: wheezes - Cardiovascular Cardiovascular exam: Present: RRR. Absent: JVD, tachycardia - GI/Abdominal GI/Abdominal exam: Present: soft. Absent: ascites, distended - Neurological Exam Neurological exam: Present: alert, oriented X3 - Psychiatric Psychiatric exam: Present: normal affect, normal mood - Skin Skin exam: Present: warm, dry Results - Labs CBC & BMP: 07/25/17 06:33 07/24/17 04:30 Lab Results: I have reviewed the past 24 hour labs
--- NOTE | 2017-07-25 10:57 | Discharge Summary ---
Diagnosis - Discharge Diagnosis (1) Anemia Status: Acute (2) Leukopenia Status: Acute (3) Menorrhagia Status: Chronic (4) Pancytopenia Status: Acute Specialty Discharge - Follow Up or Referrals Follow up with: Jasmin You M.D. [Physician] - 07/28/17 10:45 am (NEEDS CBC) Discharge Plan - Discharge Data Disposition: Disch To Home/Self Care Condition at Discharge: Stable Discharge Diet: advance to your usual diet Activity: increase activity as tolerated Hygiene: no restrictions Weight Bearing at Discharge: weight bear as tolerated Driving: no restrictions - Discharge Medications New Ferrous Sulfate Tab [Feosol Original Tab] 325 mg PO TID tablet Doxycycline Hyclate Cap [Vibramycin Cap] 100 mg PO BID #10 capsule Continue Dextroamphetamine/Amphetamine [Adderall 10 mg Tablet] 10 mg PO 1500 Dextroamphetamine/Amphetamine [Adderall 30 mg Tablet] 30 mg PO DAILY Lisinopril 10 mg PO DAILY Methocarbamol Tab [Robaxin Tab] 750 mg PO BID PRN PRN Reason: Muscle Spasm Hydrocodone/Acetaminophen [Hydrocodon-Acetaminophn 10-325] 1 each PO TID - Follow Up or Referral Follow Up: Jasmin Yuo M.D. [Physician] - 07/28/17 10:45 am (NEEDS CBC) - Forms/Instructions Exam - Constitutional Vitals: Period Temp Pulse Resp BP Sys/Padron Pulse Ox Last 24 Hr 97 F-98.4 F 59-94 18-20 129-153/65-82 93-100 General appearance: normal weight - Head Head exam: Present: normocephalic, atraumatic - Eye Eye exam: Present: EOMI Pupils: Present: VAN - ENT ENT exam: Present: normal exam - Neck Neck exam: Present: normal inspection - Respiratory Respiratory exam: Present: clear to auscultation bilaterally. Absent: rhonchi, wheezes - Cardiovascular Cardiovascular exam: Present: regular rate and rhythm - GI/Abdominal GI/Abdominal exam: Present: normal bowel sounds, soft. Absent: tenderness, rebound - Extremities Exam Extremities exam: Present: normal inspection - Back Exam Back exam: Present: normal inspection - Neurological Exam Neurological exam: Present: alert, oriented X3 - Psychiatric Psychiatric exam: Present: normal affect, normal mood - Skin Skin exam: Present: warm, intact Discharge Results Procedures and tests throughout hospitalization: Pending Orders 07/22/17 04:51 Blood Culture Stat 07/22/17 08:42 Rickettsial Disease Panel Stat West Nile Virus Ab,IgG/M, S Stat 07/26/17 04:00 CBC [Comp Blood Count Auto Diff] IN AM 07/27/17 04:00 CBC [Comp Blood Count Auto Diff] IN AM Labs on day of discharge: Labs from last 24 hours 07/25/17 07/23/17 06:33 08:21 WBC 2.2 L RBC 3.81 Hgb 9.0 L Hct 27.2 L MCV 71.4 L MCH 24 L MCHC 33.1 RDW 16.7 Plt Count 111 L Neut % (Auto) 40.5 Lymph % (Auto) 49.3 [place] % (Auto) 8.8 Eos % (Auto) 0.9 Baso % (Auto) 0.5 Neut # (Auto) 0.9 L Lymph # (Auto) 1.1 L [place] # (Auto) 0.2 Eos # (Auto) 0.0 Baso # (Auto) 0.0 Total Counted 100 Immature Gran % 0.0 Nucleated RBC % 0.0 Immature Gran # 0.00 Segmented Neutrophils 36 L Band Neutrophils 3 Lymphocytes 52 Monocytes 8 Basophils 1.0 H Nucleated RBCs # 0.00 Platelet Estimate Decreased Immature Plt Fraction 6.9 Hypochromasia 2+ Poikilocytosis 1+ Anisocytosis 1+ Microcytosis 1+ Target Cells Slight Ovalocytes Few Free [place] Light Chains 3.51 H Free [place]ambda Light Chain 2.61 Free [place]/Lambda Ratio 1.34 Preliminary micro results at discharge 07/22/17 04:51 Blood Culture - Preliminary Blood No growth at 3 days 07/22/17 04:51 Blood Culture - Preliminary Blood No growth at 3 days DS: Provider Date of admission: 07/22/17 05:34 Primary care physician: . No PCP Attending physician on admission: Carlos A Rudolph MD Consults: 07/22/17 05:44 Consult to Physician [CONS] Routine Comment: Leukopenia Consulting Provider: Consult to Specialist Group: Hematology When should Consulting Provider be notified: In am 07/22/17 08:31 Consult to Physician [CONS] Routine Comment: infection verses hematological disorder Consulting Provider: Lexa Keen Person Notified: EJ Date Notified: 07/22/17 Time Notified: 08:40 Consult to Physician [CONS] Routine Comment: low wbc, infection verses hematological Consulting Provider: Amada Dempsey Person Notified: KAELA Date Notified: 07/22/17 Time Notified: 08:51 07/23/17 07:53 Consult to Physician [CONS] Routine Comment: Heavy Menstruation Consulting Provider: Bryan Chau Consult to Specialist Group: OBGYN When should Consulting Provider be notified: Now Person Notified: CRISTO Date Notified: 07/23/17 Time Notified: 09:03 07/23/17 11:50 Consult to Physician [CONS] Routine Comment: neutropenic patient with tooth pain, r/o abscess Consulting Provider: Sumanth Piper Consult Notification Comment: MARIZA AND DR. MORRELL OFFICE WILL BE CLOSED TIL 07/25/17 09:01 Consult to Case Mgmt/Social Srvs [CONS] Routine Reason for Case Mgmt/Social Srvs: Discharge Planning Consult Comment: Please make an appt w/ the cancer center [facility] in the next 1-2 wks Discharging clinician: Melanie Cortez MD
[2017-07-25 11:37] VITALS: BP 132/73
--- NOTE | 2017-07-25 12:18 | Event Note ---
Patient overall feeling much better, no fever since admission. Blood counts have improved and so it is not clear that she requires a bone marrow biopsy at this time. Not sure because of her pancytopenia, may or may not have been a viral infection. 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
[2017-07-26 17:11] LABS: Q Fever IgM Phase I Screen NEGATIVE (NEGATIVE); Q Fever IgM Phase II Screen NEGATIVE (NEGATIVE)
== END 2017-07-25 13:18 | disposition home or self-care (01) | DRG 810 ==
LOC: N.ED 03:35 → N.EDINP 05:34 → SUATTDRO 05:34 → N.2E 06:33
PROVIDERS: ADMIT Internal Medicine; ATTEND Internal Medicine